=== PATIENT | female | born 1980 | race African-American/Black ===

== ENCOUNTER 2017-01-11 15:36 | Emergency (ER) | payer SELFPAY ==
[~2017-01-11] VITALS: Ht 167.6 cm; Wt 108.9 kg
[2017-01-11 15:57] VITALS: BP 151/92
--- NOTE | 2017-01-11 17:18 | RAD ---
Indication: Right calf pain. Grayscale, color-flow and duplex Doppler evaluation of the right lower extremity deep venous system was performed. FINDINGS: There is no evidence of a right lower extremity DVT. The right lower extremity venous system demonstrates normal compressibility with normal response to augmentation and Valsalva. No soft tissue fluid collections are identified. IMPRESSION: No evidence of right lower extremity DVT. Electronically signed by: Benito Fleming MD (01/11/2017 5:14 PM) [facility]
--- NOTE | 2017-01-11 17:33 | PHYS DOC ---
Past Medical History Past Medical History: No Pertinent History Past Surgical History: Cholecystectomy, Other Additional Past Surgical Histo: hernia Alcohol Use: None Drug Use: None Adult General Chief Complaint Chief Complaint: LOWER EXT PAIN HPI HPI Is a pleasant 36-year-old otherwise healthy female who was walking a flight of stairs yesterday slipped and fell twisting her right leg and calf. She really had no discomfort at the time of the course today while at work developed increasing pain behind the calf with localized swelling and redness. She denies any numbness and tingling to the foot or any ankle knee or hip pain. She admits that her pain is only in the calf. She denies any recent travel outside the country, she denies any recent long car rides play major train rides greater than 6 hours Review of Systems Review of Systems Constitutional: Denies fever or chills [] Eyes: Denies change in visual acuity, redness, or eye pain [] HENT: Denies nasal congestion or sore throat [] Respiratory: Denies cough or shortness of breath [] Cardiovascular: No additional information not addressed in HPI [] GI: Denies abdominal pain, nausea, vomiting, bloody stools or diarrhea [] : Denies dysuria or hematuria [] Musculoskeletal: Denies back pain or only complaint is right lower leg pain Integument: Denies rash or skin lesions [] Neurologic: Denies headache, focal weakness or sensory changes [] Allergies Allergies Allergies Coded Allergies Type Severity Reaction Last Updated Verified No Known Drug Allergies 11/24/15 No Physical Exam Physical Exam Patient's vital signs reviewed and recorded on the chart within normal limits. Constitutional: Well developed, well nourished, no acute distress, non-toxic appearance. [] Cardiovascular:Heart rate regular rhythm, no murmur [] Lungs & Thorax: Bilateral breath sounds clear to auscultation [] Skin: Warm, dry, no erythema, no rash. [] Extremities: Exhibits tenderness to palpation and a positive Homans sign in the right lower leg. There is no obvious soft tissue swelling but there is tenderness along the gastrocnemius muscle is easily reproducible on exam. She demonstrates no pain in the anterior posterior draw of her knee. There is full range motion without issue. Patient has no patellar tenderness to palpation. She demonstrates brisk capillary refill +2. At the skin all down the leg. She has brisk peripheral pulses at the posterior tibialis, dorsalis pedis and popliteal arteries. On the right leg Neurologic: Alert and oriented X 3, normal motor function, normal sensory function, no focal deficits noted. [] Psychologic: Affect normal, judgement normal, mood normal. [] Current Patient Data Vital Signs Vital Signs Date Time Temp Pulse Resp B/P (MAP) Pulse Ox O2 Delivery O2 Flow Rate FiO2 01/11/17 15:57 97.6 75 16 97 Room Air 97.6 EKG EKG [] Radiology/Procedures Radiology/Procedures [] IMAGING REPORT Signed PATIENT: COLT GUTIERREZ ACCOUNT: [id number] : 1980 LOCATION: ER AGE: 36 SEX: F EXAM STATUS: REG ER ORD. PHYSICIAN: CJ LEWIS MD REASON: calf pain after fall PROCEDURE: VENOUS LOWER EXTREMITY RIGHT Indication: Right calf pain. Grayscale, color-flow and duplex Doppler evaluation of the right lower extremity deep venous system was performed. FINDINGS: There is no evidence of a right lower extremity DVT. The right lower extremity venous system demonstrates normal compressibility with normal response to augmentation and Valsalva. No soft tissue fluid collections are identified. IMPRESSION: No evidence of right lower extremity DVT. Electronically signed by: Benito Fleming MD (01/11/2017 5:14 PM) [facility] DICTATED and SIGNED BY: BENITO FLEMING MD DATE: 01/11/17 1714 CC: CJ LEWIS MD; GARCÍA LEE MD ~ Course & Med Decision Making Course & Med Decision Making Pertinent Labs and Imaging studies reviewed. (See chart for details) [] Patient presentation is most likely muscular skeletal strain of the [place]it[place] is most on the right. Given her localized tenderness and trauma we will rule out DVT. She has no DVT risk factors of the localized trauma and localized tenderness to palpation. Dragon Disclaimer Dragon Disclaimer This electronic medical record was generated, in whole or in part, using a voice recognition dictation system. Departure Departure Impression: Primary Impression: Muscle strain Additional Impressions: Calf tenderness Muscle spasm of calf Disposition: 01 HOME, SELF-CARE Condition: STABLE Referrals: GARCÍA LEE MD (PCP) Patient Instructions: Muscle Strain, Muscle Tear Additional Instructions: These return for any new or increasing symptoms or feel any question concerns. Please exercises normal stretcher your calf to help reduce the discomfort. You may use [id number] Tylenol or Motrin to treat her symptoms. Scripts Acetaminophen (TYLENOL) 325 Mg Tablet 1-2 TAB PO QID, #60 TAB 2 Refills Prov: CJ LEWIS MD 01/11/17 Naproxen (NAPROSYN) 500 Mg Tablet 1 TAB PO BID, #14 TAB 1 Refill Prov: CJ LEWIS MD 01/11/17 Problem Qualifiers CJ LEWIS MD Jan 11, 2017 17:33
[2017-01-11] MEDS ORDERED: ACET325T9 PO (17:38)
[2017-01-11] MEDS ORDERED: NAPR500T PO (17:38)
== END 2017-01-11 17:48 | disposition home or self-care (01) ==
LOC: ER 15:36
DX: S86.912A Strain of unspecified muscle(s) and tendon(s) at lower leg level, left leg, initial encounter (principal); W10.8XXA Fall (on) (from) other stairs and steps, initial encounter; Y93.01 Activity, walking, marching and hiking; Y99.8 Other external cause status; Y92.89 Other specified places as the place of occurrence of the external cause
CPT/HCPCS: 93971; 99284-25

== ENCOUNTER 2017-01-31 17:56 | Emergency (ER) | payer OTHER ==
[~2017-01-31] VITALS: Ht 167.6 cm; Wt 101.6 kg
[~2017-01-31 17:56] MED LIST: ACET325T9 PO; NAPR500T PO
[2017-01-31 18:35] VITALS: BP 154/95
[2017-01-31] MEDS ORDERED: HYDR50CA PO (18:38)
--- NOTE | 2017-01-31 18:39 | PHYS DOC ---
Past Medical History Past Medical History: No Pertinent History Past Surgical History: Cholecystectomy, Other Additional Past Surgical Histo: hernia Alcohol Use: None Drug Use: None Adult General Chief Complaint Chief Complaint: SKIN PROBLEM HPI HPI Patient is a 36 year old female presents to the emergency department with an itching rash. She states she stated her in-laws in [place] when she initially developed a rash. She states that it has persisted and been intermittent at various spots. Review of Systems Review of Systems Constitutional: Denies fever or chills [] Eyes: Denies change in visual acuity, redness, or eye pain [] HENT: Denies nasal congestion or sore throat [] Respiratory: Denies cough or shortness of breath [] Cardiovascular: No additional information not addressed in HPI [] GI: Denies abdominal pain, nausea, vomiting, bloody stools or diarrhea [] : Denies dysuria or hematuria [] Musculoskeletal: Denies back pain or joint pain [] Integument: Itching rash Neurologic: Denies headache, focal weakness or sensory changes [] Endocrine: Denies polyuria or polydipsia [] Allergies Allergies Allergies Coded Allergies Type Severity Reaction Last Updated Verified No Known Drug Allergies 11/24/15 No Physical Exam Physical Exam Constitutional: Well developed, well nourished, no acute distress, non-toxic appearance. [] HENT: Normocephalic, atraumatic, bilateral external ears normal, oropharynx moist, no oral exudates, nose normal. [] Eyes: PERRLA, EOMI, conjunctiva normal, no discharge. [] Neck: Normal range of motion, no tenderness, supple, no stridor. [] Cardiovascular:Heart rate regular rhythm, no murmur [] Lungs & Thorax: Bilateral breath sounds clear to auscultation [] Abdomen: Bowel sounds normal, soft, no tenderness, no masses, no pulsatile masses. [] Skin: Diffuse, papular rash without vesicles, bullae, pustules. It is pruritic. The rash is pink in color, no induration or surrounding erythema. Back: No tenderness, no CVA tenderness. [] Extremities: No tenderness, no cyanosis, no clubbing, ROM intact, no edema. [] Neurologic: Alert and oriented X 3, normal motor function, normal sensory function, no focal deficits noted. [] Psychologic: Affect normal, judgement normal, mood normal. [] EKG EKG [] Radiology/Procedures Radiology/Procedures [] Course & Med Decision Making Course & Med Decision Making Pertinent Labs and Imaging studies reviewed. (See chart for details) [] Dragon Disclaimer Dragon Disclaimer This electronic medical record was generated, in whole or in part, using a voice recognition dictation system. Departure Departure Impression: Primary Impression: Test anxiety Additional Impression: Bed bug bite Disposition: HOME, SELF-CARE Condition: STABLE Referrals: GARCÍA LEE MD (PCP) Patient Instructions: Insect Bite Scripts Hydroxyzine Pamoate (VISTARIL) 50 Mg Capsule 1 CAP PO TID Y for itching, #20 CAP 2 Refills Prov: HARESH HOLLEY APRN 01/31/17 Problem Qualifiers Additional Impression: Bed bug bite Encounter type: initial encounter Qualified Codes: W57.XXXA - Bitten or stung by nonvenomous insect and other nonvenomous arthropods, initial encounter HARESH HOLLEY APRN Jan 31, 2017 18:39
== END 2017-01-31 18:42 | disposition home or self-care (01) ==
LOC: ER 17:56
DX: T14.8 Other injury of unspecified body region (principal); F41.9 Anxiety disorder, unspecified; W57.XXXA Bitten or stung by nonvenomous insect and other nonvenomous arthropods, initial encounter; Y93.89 Activity, other specified; Y92.89 Other specified places as the place of occurrence of the external cause; Y99.8 Other external cause status
CPT/HCPCS: 99283

== ENCOUNTER 2017-03-01 17:00 | Emergency (ER) | payer OTHER ==
[~2017-03-01] VITALS: Ht 165.1 cm; Wt 97.5 kg
[~2017-03-01 17:00] MED LIST changes: +HYDR50CA PO
[2017-03-01 17:47] LABS: BASO # 0.1 x10^3/uL (0.0-0.2); BASO % 1 % (0-3); EOS % 1 % (0-3); HEMOGLOBIN 13.6 g/dL (12.0-15.5); LYMPH # 1.9 x10^3/uL (1.0-4.8); LYMPH % 28 % (24-48); MEAN CORPUSCULAR HEMOGLOBIN 28 pg (25-35); MEAN CORPUSCULAR HGB CONC 33 g/dL (31-37); MEAN CORPUSCULAR VOLUME 86 fL (79-100); MONO % 8 % (0-9); NEUT % 63 % (31-73); PLATELET COUNT 263 x10^3/uL (140-400); RED BLOOD COUNT 4.77 x10^6/uL (3.50-5.40); RED CELL DISTRIBUTION WIDTH 14.2 % (11.5-14.5); WHITE BLOOD COUNT 6.6 x10^3/uL (4.0-11.0)
[2017-03-01 17:51] LABS: CALCIUM 8.9 mg/dL (8.5-10.1); CREATININE 0.8 mg/dL (0.6-1.0); GFR 98.8; POTASSIUM 4.5 mmol/L (3.5-5.1)
[2017-03-01 18:04] LABS: NEG OBC SER NEG; POS OBC SER POS
--- NOTE | 2017-03-01 18:30 | PHYS DOC ---
Past Medical History Past Medical History: CHF, Hypertension Past Surgical History: Cholecystectomy, Other Additional Past Surgical Histo: hernia Alcohol Use: None Drug Use: Marijuana Adult General Chief Complaint Chief Complaint: DIZZY/LIGHT HEADED HPI HPI Patient is a 36 year old -[place] female presents with intermittent dizziness lightheadedness for the past 2 weeks. Patient states symptoms occur when she is excited when she is cheering for sinusitis football game. Patient reports tingling in both hands. Patient is currently symptom-free. Reports increased excitability and anxiety while at work. Reports feeling nauseated earlier today. Denies headache, blurred vision, chest pain, palpitations, shortness of breath. Some occasional sweats. No abdominal pain. No increased leg pain or swelling. Denies history of hypertension and hypotension, diabetes or hypoglycemia. No other acute symptoms or complaints. [] Review of Systems Review of Systems Review symptoms as per history of present illness. All other review symptoms are negative. Allergies Allergies Allergies Coded Allergies Type Severity Reaction Last Updated Verified No Known Drug Allergies 11/24/15 No Physical Exam Physical Exam Constitutional: Well developed, well nourished, no acute distress, non-toxic appearance. [] HENT: Normocephalic, atraumatic, bilateral external ears normal, oropharynx moist, no oral exudates, nose normal. [] Eyes: PERRLA, EOMI, conjunctiva normal, no discharge. [] Neck: Normal range of motion, no tenderness, supple, no stridor. [] Cardiovascular:Heart rate regular rhythm, no murmur [] Lungs & Thorax: Bilateral breath sounds clear to auscultation [] Abdomen: Bowel sounds normal. [] Skin: Warm, dry, no erythema, no rash. [] Back: No tenderness, no CVA tenderness. [] Extremities: No tenderness, no cyanosis, no clubbing, ROM intact, no edema. [] Neurologic: Alert and oriented X 3, normal motor function, normal sensory function, no focal deficits noted. [] Psychologic: Affect anxious l. [] Current Patient Data Vital Signs Vital Signs Date Time Temp Pulse Resp B/P (MAP) Pulse Ox O2 Delivery O2 Flow Rate FiO2 03/01/17 18:50 79 16 125/66 (85) 98 Room Air 03/01/17 17:10 98.3 98.3 Lab Values Laboratory Tests Test 03/01/17 17:09 03/01/17 17:25 03/01/17 17:34 POC Urine HCG, Qualitative Hcg negative (Negative) Glucose (Fingerstick) 98 mg/dL (70-99) White Blood Count 6.6 x10^3/uL (4.0-11.0) Red Blood Count 4.77 x10^6/uL (3.50-5.40) Hemoglobin 13.6 g/dL (12.0-15.5) Hematocrit 41.0 % (36.0-47.0) Mean Corpuscular Volume 86 fL (79-100) Mean Corpuscular Hemoglobin 28 pg (25-35) Mean Corpuscular Hemoglobin Concent 33 g/dL (31-37) Red Cell Distribution Width 14.2 % (11.5-14.5) Platelet Count 263 x10^3/uL (140-400) Neutrophils (%) (Auto) 63 % (31-73) Lymphocytes (%) (Auto) 28 % (24-48) Monocytes (%) (Auto) 8 % (0-9) Eosinophils (%) (Auto) 1 % (0-3) Basophils (%) (Auto) 1 % (0-3) Neutrophils # (Auto) 4.1 x10^3uL (1.8-7.7) Lymphocytes # (Auto) 1.9 x10^3/uL (1.0-4.8) Monocytes # (Auto) 0.5 x10^3/uL (0.0-1.1) Eosinophils # (Auto) 0.0 x10^3/uL (0.0-0.7) Basophils # (Auto) 0.1 x10^3/uL (0.0-0.2) Sodium Level 141 mmol/L (136-145) Potassium Level 4.5 mmol/L (3.5-5.1) Chloride Level 105 mmol/L (98-107) Carbon Dioxide Level 29 mmol/L (21-32) Anion Gap 7 (6-14) Blood Urea Nitrogen 13 mg/dL (7-20) Creatinine 0.8 mg/dL (0.6-1.0) Estimated GFR (Cockcroft-Gault) 98.8 Glucose Level 90 mg/dL (70-99) Calcium Level 8.9 mg/dL (8.5-10.1) Serum Test, Qualitative Negative (NEG) Laboratory Tests 03/01/17 17:34 Laboratory Tests 03/01/17 17:34 EKG EKG [EKG: Normal sinus rhythm, no acute ST-T wave changes. Rate 69] Radiology/Procedures Radiology/Procedures [] Course & Med Decision Making Course & Med Decision Making Pertinent Labs and Imaging studies reviewed. (See chart for details) [Work up unremarkable. Patient asymptomatic in the ED. Suspect symptoms may have an anxiety component. Will treat nausea as needed with PCP follow-up. Return precautions reviewed.] Dragon Disclaimer Dragon Disclaimer This electronic medical record was generated, in whole or in part, using a voice recognition dictation system. Departure Departure Impression: Primary Impression: Dizziness Additional Impression: Nausea Disposition: 01 HOME, SELF-CARE Condition: GOOD Referrals: GARCÍA LEE MD (PCP) Patient Instructions: Dizziness, [id number], Nausea and Vomiting, Easy-to- Read Additional Instructions: You were evaluated emergency prompt for dizziness and nausea. Lab work EKG studies were obtained. The cause of your symptoms has not been determined. Problem Qualifiers CHRISTI COOMBS DO Mar 01, 2017 18:30
[2017-03-01 18:50] VITALS: BP 125/66
--- NOTE | 2017-03-02 06:24 | EKG ---
[facility] [address] [place] [address] Test Date: 2017-03-01 Test Time: 17:23:45 Pat Name: COLT GUTIERREZ Department: Room: Gender: F [employer]: : 1980 Requested By: CHRISTI COOMBS Order Number: [id number] Reading MD: Measurements Intervals [place] Rate: 69 P: 41 WV: 150 QRS: -19 QRSD: 82 T: 19 QT: 390 QTc: 419 Interpretive Statements SINUS RHYTHM LEFTWARD AXIS INCOMPLETE RIGHT BUNDLE BRANCH BLOCK RI6.01 Unconfirmed report No previous ECG available for comparison
== END 2017-03-01 18:52 | disposition home or self-care (01) ==
LOC: ER 17:00
DX: R42 Dizziness and giddiness (principal); R11.0 Nausea; R20.2 Paresthesia of skin; I11.0 Hypertensive heart disease with heart failure; I50.9 Heart failure, unspecified; Z90.49 Acquired absence of other specified parts of digestive tract
CPT/HCPCS: 36415; 80048; 81025; 82962; 84703; 85025; 93005; 99285-25

== ENCOUNTER 2017-08-29 12:41 | Emergency (ER) | payer OTHER ==
[2017-08-29 13:38] LABS: URINE HCG POC HCG NEGATIVE (Negative)
[2017-08-29 13:45] LABS: BILIRUBIN,URINE NEGATIVE (NEG); CLARITY,URINE CLEAR; COLOR,URINE YELLOW; GLUCOSE,URINE NEGATIVE (NEG); NITRITE,URINE NEGATIVE (NEG); PROTEIN,URINE NEGATIVE (NEG-TRACE); UROBILINOGEN,URINE 0.2 mg/dL (0.2 mg/dL)
[2017-08-29] MEDS ORDERED: CONTRAST GIVEN MC (13:45)
[2017-08-29] MEDS ORDERED: IOHEXOL 300 MG/ML 100ML VIAL. IV (13:45)
[2017-08-29 13:50] LABS: BARBITURATES NEG (NEG); BENZODIAZEPINES NEG (NEG); CANNABINOIDS POS (NEG); COCAINE NEG (NEG); METHADONE NEG (NEG); OPIATES NEG (NEG); PHENCYCLIDINE NEG (NEG)
[2017-08-29 13:52] LABS: AMPHETAMINE/METHAMPHETAMINE NEG (NEG); ETHANOL, URINE NEG (NEG)
[2017-08-29 13:53] LABS: ADD MAN DIFF? NO
[2017-08-29] MEDS: IV NORMAL SALINE 1000ML BAG 1,000 ML IV (13:57)
[2017-08-29 13:58] LABS: AGAP ISTAT 16 mmol/L (6-14); BUN ISTAT 13 mg/dL (8-26); CHLORIDE ISTAT 104 mmol/L (98-110); GLUCOSE ISTAT 80 mg/dL (70-99); HEMATOCRIT ISTAT 41 % (36-40); HEMOGLOBIN ISTAT 13.9 g/dL (12-15); ION CA ISTAT 1.16 mmol/L (1.13-1.32); POTASSIUM ISTAT 3.5 mmol/L (3.5-5.0); SODIUM ISTAT 143 mmol/L (135-145); TOT CO2 ISTAT 27 mmol/L (23-32)
[2017-08-29 13:59] LABS: BASO % 1 % (0-3); EOS # 0.1 x10^3/uL (0.0-0.7); EOS % 2 % (0-3); HEMATOCRIT 41.5 % (36.0-47.0); HEMOGLOBIN 13.6 g/dL (12.0-15.5); LYMPH # 1.6 x10^3/uL (1.0-4.8); LYMPH % 35 % (24-48); MEAN CORPUSCULAR HEMOGLOBIN 28 pg (25-35); MEAN CORPUSCULAR HGB CONC 33 g/dL (31-37); MEAN CORPUSCULAR VOLUME 86 fL (79-100); MONO # 0.4 x10^3/uL (0.0-1.1); MONO % 10 % (0-9); NEUT # 2.4 x10^3uL (1.8-7.7); NEUT % 53 % (31-73); PLATELET COUNT 277 x10^3/uL (140-400); RED BLOOD COUNT 4.81 x10^6/uL (3.50-5.40); RED CELL DISTRIBUTION WIDTH 14.5 % (11.5-14.5); WHITE BLOOD COUNT 4.5 x10^3/uL (4.0-11.0)
[2017-08-29 14:08] LABS: ANION GAP 5 (6-14); BACTERIA,URINE 0 /HPF (0-FEW); BLOOD UREA NITROGEN 14 mg/dL (7-20); CARBON DIOXIDE 32 mmol/L (21-32); CHLORIDE 108 mmol/L (98-107); GFR 76.3; GLUCOSE 83 mg/dL (70-99); POTASSIUM 3.6 mmol/L (3.5-5.1); RBC,URINE OCC /HPF (0-2); SODIUM 145 mmol/L (136-145); SQUAMOUS EPITHELIAL CELL,UR MOD /LPF; WBC,URINE OCC /HPF (0-4)
[2017-08-29 14:14] LABS: ALBUMIN 3.4 g/dL (3.4-5.0); ALK PHOS 57 U/L (46-116); ALT (SGPT) 41 U/L (14-59); AST (SGOT) 8 U/L (15-37); DIRECT BILIRUBIN < 0.1 mg/dL (0.0-0.2); LIPASE 265 U/L (73-393); TOTAL BILIRUBIN 0.2 mg/dL (0.2-1.0); TOTAL PROTEIN 6.9 g/dL (6.4-8.2)
[2017-08-29 14:17] LABS: TROPONINI < 0.017 ng/mL (0.000-0.055)
[2017-08-29 14:21] LABS: CKMB INDEX 0.6 % (0-4); CKMB MASS 1.1 ng/mL (0.0-3.6); CREATINE KINASE 184 U/L (26-192)
[2017-08-29 14:21] LABS: NT-PRO BNP 91 pg/mL (0-124)
== END 2017-08-29 15:30 | disposition home or self-care (01) ==
LOC: ER 12:41
DX: R10.33 Periumbilical pain (principal); I11.0 Hypertensive heart disease with heart failure; I50.9 Heart failure, unspecified; Z90.49 Acquired absence of other specified parts of digestive tract; F12.10 Cannabis abuse, uncomplicated
CPT/HCPCS: 36415; 71045; 74177; 80047; 80048; 80076; 80307; 81001; 81025; 82553; 83690; 83880; 84484; 85025; 93005; 96360; 99285-25; J7030

== ENCOUNTER 2017-11-04 16:09 | Emergency (ER) | payer OTHER | END 2017-11-04 16:36 | disposition home or self-care (01) | LOC: ER 16:36 | DX: B02.9 Zoster without complications (principal); I11.0 Hypertensive heart disease with heart failure; I50.9 Heart failure, unspecified | CPT/HCPCS: 99283 ==

== ENCOUNTER 2018-05-03 05:28 | Emergency (ER) | payer OTHER ==
[~2018-05-03] VITALS: Ht 175.3 cm; Wt 106.1 kg
[~2018-05-03 05:28] MED LIST changes: +ACYC15OI TP; +ACYC800T PO; +NAPR-683 PO; -NAPR500T PO
[2018-05-03 05:30] VITALS: BP 170/98
[2018-05-03] MEDS ORDERED: ORPH100T PO (05:47)
--- NOTE | 2018-05-03 05:48 | PHYS DOC ---
Past Medical History Past Medical History: CHF, Hypertension Past Surgical History: Cholecystectomy, Other Additional Past Surgical Histo: hernia Alcohol Use: None Drug Use: Marijuana Adult General Chief Complaint Chief Complaint: BACK PAIN OR INJURY HPI HPI 37-year-old female presents with report of back pain started last night when patient was at the grocery store. Patient reports she thinks she might have "tweaked her back ". 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 Patient reports she lifts heavy objects and twists and turns every day. Denies . Denies fever or chills. Denies hematuria or dysuria. Review of Systems Review of Systems Constitutional: Denies fever or chills [] Eyes: Denies change in visual acuity, redness, or eye pain [] HENT: Denies nasal congestion or sore throat [] Respiratory: Denies cough or shortness of breath [] Cardiovascular: Denies chest pain or palpitations GI: Denies abdominal pain, nausea, vomiting, or diarrhea [] : Denies dysuria or hematuria [] Musculoskeletal: Reports thoracic back pain Integument: Denies rash or skin lesions [] Neurologic: Denies headache, focal weakness or sensory changes [] Complete systems were reviewed and found to be within normal limits, except as documented in this note. Current Medications Current Medications Current Medications Medications (Trade) Dose Ordered Sig/Marline Start Time Stop Time Status Last Admin Dose Admin Dexamethasone (Decadron) 10 mg 1X ONCE 05/03/18 06:00 05/03/18 06:01 DC 05/03/18 06:03 10 MG Orphenadrine Citrate (Norflex) 60 mg 1X ONCE 05/03/18 06:00 05/03/18 06:01 DC 05/03/18 06:04 60 MG Allergies Allergies Allergies Coded Allergies Type Severity Reaction Last Updated Verified No Known Drug Allergies 11/24/15 No Physical Exam Physical Exam Constitutional: Well developed, well nourished, no acute distress, non-toxic appearance. [] HENT: Normocephalic, atraumatic, Eyes: Conjunctiva normal, no discharge. [] Neck: Normal range of motion, no tenderness, supple Cardiovascular: Heart rate regular rhythm, no murmur [] Lungs & Thorax: Bilateral breath sounds clear to auscultation [] Abdomen: Soft, no tenderness Skin: Warm, dry, no erythema, no rash. [] Back: No midline bony tenderness, right paraspinal mid thoracic pain on palpation Extremities: No tenderness, ROM intact, no edema. [] Neurologic: Alert and oriented X 3, no focal deficits noted. [] Psychologic: Affect normal, judgement normal, mood normal. [] EKG EKG [] Radiology/Procedures Radiology/Procedures [] Course & Med Decision Making Course & Med Decision Making Immunizations presents with history of present illness and physical exam consistent for paraspinal mid thoracic back pain. No midline bony tenderness noted. No history of known trauma. Patient denies . Symptomatic treatment provided with ice pack, oral steroid, and IM Norflex. Patient stable for discharge with outpatient follow-up with PCP/Pain specialist. Pain specialist referral provided. Discussed findings and plan with patient and family, who acknowledge understanding and agreement. Dragon Disclaimer Dragon Disclaimer This electronic medical record was generated, in whole or in part, using a voice recognition dictation system. Departure Departure Impression: Primary Impression: Acute thoracic back pain Disposition: HOME, SELF-CARE Condition: STABLE Referrals: GARCÍA LEE MD (PCP) SALVADOR SUERO MD Patient Instructions: Back Pain, Adult, [id number], Thoracic Strain, Easy-to- Read Additional Instructions: ICE areas that hurt. Use over the counter Ibuprofen and Tylenol for pain in addition to muscle relaxer prescribed. Scripts Orphenadrine Citrate (ORPHENADRINE CITRATE) 100 Mg Tablet.er 100 MG PO BID PRN for MUSCLE PAIN, #14 Prov: UMANG DAILEY DO 05/03/18 Problem Qualifiers Primary Impression: Acute thoracic back pain Back pain laterality: right Qualified Codes: M54.6 - Pain in thoracic spine UMANG DAILEY DO May 03, 2018 05:48
[2018-05-03] MEDS ORDERED: DEXAMETHASONE 4 MG TABLET PO ONE (06:00)
[2018-05-03] MEDS ORDERED: ORPHENADRINE CITRATE 60 MG/2 ML VIAL. IM ONE (06:00)
== END 2018-05-03 06:10 | disposition home or self-care (01) ==
LOC: ER 05:28
DX: M54.6 Pain in thoracic spine (principal); I11.0 Hypertensive heart disease with heart failure; I50.9 Heart failure, unspecified; Z90.49 Acquired absence of other specified parts of digestive tract; Z98.890 Other specified postprocedural states
CPT/HCPCS: 96372; 99283; J2360; J8540

== ENCOUNTER 2018-07-13 14:57 | Emergency (ER) | payer OTHER ==
[~2018-07-13] VITALS: Ht 165.1 cm; Wt 111.6 kg
[~2018-07-13 14:57] MED LIST changes: +ORPH100T PO
[2018-07-13 15:18] VITALS: BP 155/80
--- NOTE | 2018-07-13 16:33 | PHYS DOC ---
Past Medical History Past Medical History: No Pertinent History, CHF, Hypertension Past Surgical History: Cholecystectomy, Other Additional Past Surgical Histo: hernia Alcohol Use: None Drug Use: Marijuana Adult General Chief Complaint Chief Complaint: MECHANICAL FALL HPI HPI Patient is a 37 year old female who presents with a fever of having a rupture to her gastric sleeve. The patient states that she had vertical gastric sleeve done approximately one week ago at [facility]. She states that she fell on the ice today and was worried that she might have damaged herself. She denies any pain. Review of Systems Review of Systems Constitutional: Denies fever or chills [] Respiratory: Denies cough or shortness of breath [] Cardiovascular: No additional information not addressed in HPI [] GI: See history of present illness : Denies dysuria or hematuria [] Musculoskeletal: Denies back pain or joint pain [] Integument: Denies rash or skin lesions [] Neurologic: Denies headache, focal weakness or sensory changes [] Endocrine: Denies polyuria or polydipsia [] All other systems were reviewed and found to be within normal limits, except as documented in this note. Allergies Allergies Allergies Coded Allergies Type Severity Reaction Last Updated Verified No Known Drug Allergies 11/24/15 No Physical Exam Physical Exam Constitutional: Well developed, well nourished, no acute distress, non-toxic appearance. [] Cardiovascular:Heart rate regular rhythm, no murmur [] Lungs & Thorax: Bilateral breath sounds clear to auscultation [] Abdomen: Bowel sounds normal, soft, no tenderness, no masses, no pulsatile masses. [] Skin: Warm, dry, no erythema, no rash. [] Back: No tenderness, no CVA tenderness. [] Extremities: No tenderness, no cyanosis, no clubbing, ROM intact, no edema. [] Neurologic: Alert and oriented X 3, normal motor function, normal sensory function, no focal deficits noted. [] Psychologic: Affect normal, judgement normal, mood normal. [] Current Patient Data Vital Signs Vital Signs Date Time Temp Pulse Resp B/P (MAP) Pulse Ox O2 Delivery O2 Flow Rate FiO2 07/13/18 15:18 98.5 107 18 155/80 (105) 96 Room Air 98.5 EKG EKG [] Radiology/Procedures Radiology/Procedures [] Course & Med Decision Making Course & Med Decision Making Pertinent Labs and Imaging studies reviewed. (See chart for details) []The patient eloped from the emergency department before she was imaged. Dragon Disclaimer Dragon Disclaimer This electronic medical record was generated, in whole or in part, using a voice recognition dictation system. Departure Departure Impression: Primary Impression: Eloped from emergency department Disposition: 07 AGAINST MEDICAL ADVICE Condition: STABLE Referrals: GARCÍA LEE MD (PCP) HOLDEN ALBRIGHT APRN Jul 13, 2018 16:33
== END 2018-07-13 16:33 | disposition left against medical advice (07) ==
LOC: ER 14:57
DX: K91.89 Other postprocedural complications and disorders of digestive system (principal); I11.0 Hypertensive heart disease with heart failure; I50.9 Heart failure, unspecified; Z98.890 Other specified postprocedural states; Z90.49 Acquired absence of other specified parts of digestive tract; Z90.3 Acquired absence of stomach [part of]
CPT/HCPCS: 99281